=== PATIENT | female | born 1950 | race Caucasian/White ===

== ENCOUNTER 2018-02-11 14:17 | Emergency (ER) | payer MEDICARE, OTHER ==
[~2018-02-11] VITALS: Ht 162.6 cm; Wt 78.0 kg
[~2018-02-11 14:17] MED LIST: BACTRIM DS1 TAB PO; CALCIUM500 MG OR; COQ-10100 M1 PO; FISH OIL1 CAP PO; GARLIC PO; GLUCOSAMINE500 M2 OR; GNP RED YEAST RICE PO; LEVOTHYROXIN50 MCG PO; MULTIVITAMI1 OR; NORCO1 TAB PO; PRILOSEC40 MG PO; SIMVASTATIN40 MG PO; VITAMIN D2 PO
[2018-02-11] MEDS ORDERED: ASPIRIN81 MG PO (16:05)
[2018-02-11] MEDS ORDERED: VITAMIN E400 UNIT PO (16:06)
[2018-02-11] MEDS ORDERED: ASPERCREME LIDOCA41 TOP (16:30)
[2018-02-11] MEDS ORDERED: MOTRIN400 MG PO (16:30)
[2018-02-11 16:36] VITALS: BP 141/69
== END 2018-02-11 16:40 | disposition home or self-care (01) ==
LOC: ED 14:17
DX: S20.211A Contusion of right front wall of thorax, initial encounter (principal); E07.9 Disorder of thyroid, unspecified; W55.12XA Struck by horse, initial encounter; Y93.K9 Activity, other involving animal care; Y92.009 Unspecified place in unspecified non-institutional (private) residence as the place of occurrence of the external cause; Z86.73 Personal history of transient ischemic attack (TIA), and cerebral infarction without residual deficits

== ENCOUNTER 2020-07-15 09:40 | Observation (INO) | payer MEDICARE, OTHER ==
[~2020-07-15] VITALS: Ht 162.6 cm; Wt 74.1 kg
[2020-07-15] VITALS (10 sets, daily range): BP systolic 114–159; BP diastolic 51–72
[~2020-07-15 09:40] MED LIST changes: +ASPERCREME LIDOCA41 TOP; +ASPIRIN81 MG PO; +MOTRIN400 MG PO; +VITAMIN E400 UNIT PO
--- NOTE | 2020-07-15 09:40 | NUR ---
PT TO ROOM VIA WC
[2020-07-15 10:31] LABS: HEMATOCRIT 43.2 % (37.0-47.0); HEMOGLOBIN 13.4 g/dl (12.0-16.0); IMMATURE GRANULOCYTES 0.2 % (0.0-5.0); MEAN CELL VOLUME 85.4 fL CALC (80.0-100.0); MEAN CORPUSCULAR HGB 26.5 pG CALC (26.0-32.0); NEUT# 3.87 thou/uL (2.00-7.15); RED BLOOD COUNT 5.06 mill/uL (4.20-5.60); RED CELL DISTRI WIDTH 12.5 % (11.5-15.5); URINE BILIRUBIN - DIPSTICK NEGATIVE (NEGATIVE); URINE BLOOD DIPSTICK NEGATIVE (NEGATIVE); URINE COLOR YELLOW; URINE GLUCOSE - DIPSTICK NEGATIVE (NEGATIVE); URINE KETONE NEGATIVE (NEGATIVE); URINE LEUK ESTERASE NEGATIVE (NEGATIVE); URINE NITRITE - DIPSTICK NEGATIVE (Negative); URINE PROTEIN - DIPSTICK NEGATIVE (NEG-TRACE); URINE UROBILINOGEN - DIPSTICK 0.2 E.U./dL (0.2)
--- NOTE | 2020-07-15 10:44 | NUR ---
PT WITH IV ESTABLISHED, LABS DRAWN, MEDS PROVIDED ORDERED. PT FELT NAUSEATED BUT WAS ABLE TO TAKE ANTIVERT WITHOUT EMESIS.
[2020-07-15 11:06] LABS: ALBUMIN 4.3 g/dL (3.2-5.0); ALKALINE PHOSPHATASE 83 u/l (38-126); ANION GAP 12 (6-22 (CALC)); BILIRUBIN, TOTAL 0.5 mg/dL (0.0-1.4); BUN 17 mg/dL (8-23); BUN/CREATININE RATIO 27 (12-20 (CALC)); CARBON DIOXIDE 25 mmol/l (22-30); CHLORIDE 105 mmol/l (95-108); CREATININE 0.6 mg/dL (0.5-1.0); GFR > 60 ML/MIN (>=60 (CALC)); GFR FOR AFR.AMER. > 60 ML/MIN (>=60 (CALC)); SGOT/AST 25 u/l (9-36); SODIUM 139 mmol/l (137-146); TOTAL PROTEIN 7.3 g/dL (6.3-8.2)
[2020-07-15] MEDS ORDERED: MECLIZINE25 MG PO ×2 (12:01)
[2020-07-15] MEDS ORDERED: ZOFRAN4 MG/TAB PO ×2 (12:01)
--- NOTE | 2020-07-15 12:21 | NUR ---
PT PROVIDED ADDITIONAL MEDS PER CONTINUED DIZZINESS.
--- NOTE | 2020-07-15 13:35 | NUR ---
PT SEEN RESTING QUIETLY IN THE BED, EYES CLOSED PER SEDATION RESPONSE.
[2020-07-15] MEDS ORDERED: [UNRECOGNIZED DRUG - OTHER] PO (17:34)
--- NOTE | 2020-07-15 19:29 | NUR ---
RECEIVED HAND OFF REPORT FROM RANDY, PATIENT AWAITITNG ADMITING ORDER FOR INPATIENT ADMISSION. AWAKE AND ALERT, NO C/O PAIN OR DISCOMFORT, NO S/S OF DISTRESS NOTED, RESPIRATIONS EVEN AND UNLABORED.
--- NOTE | 2020-07-15 19:50 | NUR ---
PATIENT ARRIVES VIA ER STRETCHER ACCOMPANIED BY ER NURSE. PATIENT IS AWAKE, FOLLOWS DIRECTIONS, IS ABLE TO WALK TO THE BED WITH AN UNSTEADY GAIT, ASSISTED X1. PT DOES REPORT SHE IS DIZZY, FEELS LIKE "THE ROOM IS SPINNING." ON RA, NO SOB NOTED. SATS HREATER THAN 95%. AFEBRILE. SR ON TELEMETRY. BP 140'S-150'S SYSTOLIC. CALL LIGHT WITHIN REACH. DISCUSSED POC FOR TONIGHT. DISCUSSED NIH AND MEND EXAMS.
--- NOTE | 2020-07-15 19:59 | NUR ---
PATIENT TRANSFERED TO ICU ROOM 4 VIA STRETCHER.
--- NOTE | 2020-07-15 20:26 | NUR ---
PATIENT IN HIGH CHEN'S, IS EATING CRACKERS, ICED WATER PROVIDED. NO ACUTE DISTRESS SHOWN.
--- NOTE | 2020-07-15 20:50 | NUR ---
PATIENT IS AWAKE, ALERT AND ORIENTED X4. NIH SCORE IS 3 FOR LIMB ATAXIA PRESENT ON LEFT SIDE LIMBS, LLE DRIFT. PATIENT DOES REPORT SHE HAD A HISTORY OF STROKE WITH RESIDUAL LEFT SIDE WEAKNESS. PT ALSO REPORTS SHE HAS VERTIGO, WHICH SHE HAD A BOUT 3 MONTHS A GO AND SHE TAKES MECLIZINE PRN, SHE REPORTS THIS TIME IT IS WORSE ESPECIALLY WITH NAUSEA AND VOMITING WHICH SUBSIDED AFTER RECEIVING ZOFRAN IN THE ER. ADMISSION ASSESSMENT AND HISTORY COMPLETED. PT REPORTS PROVIDED A MEDICATION LIST IN THE ER. IV X1 INTACT. EDUCATED ON SCD'S AND MEDICATIONS SHE WILL BE RECEIVING, LABS/TESTS ORDERED. PT WAS ABLE TO HAVE A SNACK AND APPLE JUICE WITHOUT ANY DIFFICULTY, PT DOES REPORT SHE HAS A HERNIA IN HER THROAT WHICH IS WHY SHE EATS SMALL MOUTH BITES. PT CLOSES HER EYES AT TIMES FROM THE DIZZINESS. CALL LIGHT WITHIN REACH.
[2020-07-15 20:59] LABS: C-REACTIVE PROTEIN 0.5 mg/dL (0-0.9); CALCULATED LDLCHOLESTEROL 199 mg/dL (62-129 (CALC)); CHOLESTEROL HDL RATIO 4.8 (<4.4 (CALC)); ETHYL ALCOHOL 0 mg/dl (0-30); HDL CHOLESTEROL 59 mg/dL (>=40); TOTAL CHOLESTEROL 280 mg/dl (0-199); TOTAL TRIGLYCERIDES 111 mg/dl (30-149); VLDL CHOLESTROL 22 mg/dl (0-48 (CALC))
--- NOTE | 2020-07-15 23:00 | NUR ---
PATIENT WAS ASSISTED TO BSC. VOIDED YELLOW/CLEAR URINE, 200 ML. MEND EXAM PERFORMED, NO CHANGES. SCD'S IN PLACE. CALL LIGHT WITHIN REACH.
[2020-07-16] VITALS (19 sets, daily range): BP systolic 98–151; BP diastolic 42–85
--- NOTE | 2020-07-16 01:21 | NUR ---
MEND EXAM PERFORMED, NO CHANGES. NO ACUTE DISTRESS SHOWN. NO NEEDS OR COMPLAINTS AT THIS TIME.
--- NOTE | 2020-07-16 03:30 | NUR ---
PATIENT AWAKENS EASILY WHEN SPOKEN TO. PATIENT ABLE TO PERFORM MEND EXAM, NO CHANGES, STILL HAS THE DRIFT TO THE LLE, THE ATAXIA ON LEFT SIDE LIMBS. REPORTS THE DIZZINESS HAS BECOME LESS, THE ROOM SPINNING IS LESS WELL. PT WAS ASSISTED TO BSC, PT DOES CONTINUE TO HAVE UNSTEADY GAIT. PT NOW LAYS ON HER LEFT SIDE, REQUESTED A PILLOW TO PLACED IN BETWEEN HER KNEES, PROVIDED. CALL LIGHT WITHIN REACH.
--- NOTE | 2020-07-16 06:27 | NUR ---
PATIENT ABLE TO SWALLOW HER AM MEDICATION. NO ACUTE DISTRESS SHOWN. NO NEEDS OR COMPLAINTS AT THIS TIME. CALL LOGHT WITHIN REACH.
--- NOTE | 2020-07-16 07:05 | NUR ---
pt resting in bed with eyes closed; easily aroused; no apparent distress noted; assessment/ neuro exam completed at this time; pt alert and oriented; denies pain; no n/v noted; perrla; resp even and unlabored; lungs clear; skin color wnl; ra; hr reg; strong pulses; no edema noted; sr/sb on monitor; abd soft with bs present; no bm noted per racebook writer; pt admits to voiding without complication; no urine to inspect at this time; #20 flushed and patent to lfa; ivf infusing without complication; no redness or edema noted at site; pt admits to dizziness; racebook writer assist pt to sitting position for post lung assessment; dizziness noted worse with movement; no facial droop noted; left drift/weakness noted; see NIH; plan of care/ am meds/ neuro checks explained; call light within reach; will continue to monitor
--- NOTE | 2020-07-16 08:15 | NUR ---
awake in bed conversing on cell phone; no apparent distress noted; iv intact and patent; sr on monitor; call light within reach; will continue to monitor
--- NOTE | 2020-07-16 08:38 | NUR ---
Dr Rock present at bedside to assess pt and discuss plan of care
--- NOTE | 2020-07-16 10:02 | NUR ---
pt awake in bed; no apparent distress noted; pt conversing on cell phone; iv intact and patent; no redness or edema noted at site; no changes/ decline in neuro status; sr on monitor; call light within reach; will continue to monitor
--- NOTE | 2020-07-16 10:10 | NUR ---
awake in bed; assisted to bathroom; pt very dizzy with activity/ ambulation; iv intact and and pt; sr on monitor; call light within reach; will continue to monitor
--- NOTE | 2020-07-16 11:25 | NUR ---
PT present at bedside to eval and treat pt
--- NOTE | 2020-07-16 12:10 | NUR ---
awake in bed; spouse present at bedside; no apparent distress noted; pt offers no complaints; iv intact and patent; sr on monitor; call light within reach; will continue to monitor
--- NOTE | 2020-07-16 13:17 | NUR ---
PT/OT at bedside to assess eval pt;
--- NOTE | 2020-07-16 13:27 | NUR ---
PT note- patient is seen for funcitonal evaluation. I also performed DHP which was positive on the right. I went ahead and cleared her with an Epleys and gave her this as a HEP
--- NOTE | 2020-07-16 13:50 | NUR ---
pt awake sitting in chair; no apparent distress noted; pt denies any dizziness at current; pt states "I feel like a new person"; up to bathroom with slightly unsteady gait; pt admits to some dizziness only with activity; pt transferred to MRI via wc in stable condition;
--- NOTE | 2020-07-16 14:38 | NUR ---
pt returned to unit via wc in stable condition; monitoring attachments reapplied; pt with complaints of sore throat from vomiting; will continue to monitor
--- NOTE | 2020-07-16 15:45 | NUR ---
Dr Moran called per conventional mortgage underwriter; updated on MRI results; awaiting discharge orders
--- NOTE | 2020-07-16 16:05 | NUR ---
awake in bed; no apparent distress noted; MRI results reviewed with pt; awaiting discharge orders; spouse present at bedside; sr on monitor; call light within reach; will continue to monitor
[2020-07-16] MEDS ORDERED: ATORVASTATIN CA40 MG PO (16:30)
--- NOTE | 2020-07-16 17:10 | NUR ---
Discharge instructions given. Patient verbalizes understanding of same. Discharged in stable condition via Wheelchair to Home with spouse. All belongings sent with pt.
== END 2020-07-16 17:10 | disposition home or self-care (01) ==
LOC: ED 09:40 → ICU 16:36
PROVIDERS: Student in an Organized Health Care Education/Training Program; ADMIT Internal Medicine; ATTEND Internal Medicine
DX: R42 Dizziness and giddiness (principal); M62.81 Muscle weakness (generalized); H53.2 Diplopia; H53.40 Unspecified visual field defects; I10 Essential (primary) hypertension; E03.9 Hypothyroidism, unspecified; E78.5 Hyperlipidemia, unspecified; Z79.82 Long term (current) use of aspirin; Z86.73 Personal history of transient ischemic attack (TIA), and cerebral infarction without residual deficits; Z20.828 Contact with and (suspected) exposure to other viral communicable diseases
CPT/HCPCS: J1650; J2060

== ENCOUNTER 2022-04-18 08:25 | Day surgery (SDC) | payer MEDICARE, OTHER ==
[~2022-04-18] VITALS: Ht 162.6 cm; Wt 75.7 kg
[~2022-04-18 08:25] MED LIST changes: +ATORVASTATIN CA40 MG PO; +FISH OIL500 MG PO; +LASIX 40 MG TAB40 MG PO; +MECLIZINE25 M2; +MECLIZINE25 MG PO; +NITROSTAT0.4 MG SL; +TURMERIC500 M1; +ZOFRAN4 MG/TAB PO; +[UNRECOGNIZED DRUG - OTHER] PO
[2022-04-18 11:11] VITALS: BP 131/61
[2022-04-18] MEDS ORDERED: AMOXICILLIN500 M2 PO (13:36)
[2022-04-18] MEDS ORDERED: LEVOFLOXACIN500MG PO (13:37)
[2022-04-18] MEDS ORDERED: OMEPRAZOLE20 MG PO (13:38)
== END 2022-04-18 11:32 | disposition home or self-care (01) ==
LOC: ENDO 08:25 → ORM 08:45 → ENDO 09:00
PROVIDERS: ATTEND Surgery
PROC: 0DJD8ZZ Inspection of Lower Intestinal Tract, Via Natural or Artificial Opening Endoscopic (ICD-10-PCS; principal; 2022-04-18)
PROC: 0DJ08ZZ Inspection of Upper Intestinal Tract, Via Natural or Artificial Opening Endoscopic (ICD-10-PCS; 2022-04-18)
DX: K21.9 Gastro-esophageal reflux disease without esophagitis (principal); K44.9 Diaphragmatic hernia without obstruction or gangrene; Z12.11 Encounter for screening for malignant neoplasm of colon; E03.9 Hypothyroidism, unspecified; Z86.73 Personal history of transient ischemic attack (TIA), and cerebral infarction without residual deficits; Z80.0 Family history of malignant neoplasm of digestive organs
CPT/HCPCS: 43235; G0105

== ENCOUNTER 2023-01-08 14:07 | Emergency (ER) | payer MEDICARE, OTHER ==
[2023-01-08] VITALS (21 sets, daily range): BP systolic 109–154; BP diastolic 56–78
[~2023-01-08] VITALS: Ht 162.6 cm; Wt 79.2 kg
[~2023-01-08 14:07] MED LIST changes: +AMOXICILLIN500 M2 PO; +LEVOFLOXACIN500MG PO; +OMEPRAZOLE20 MG PO
[2023-01-08 14:38] LABS: BASO% 0.4 % (0-3); EOS% 0.9 % (0-8); HEMATOCRIT 42.8 % (37.0-47.0); HEMOGLOBIN 13.8 g/dl (12.0-16.0); IMMATURE GRANULOCYTES 0.1 % (0.0-5.0); LYMPH% 21.6 % (15-41); MEAN CELL VOLUME 84.9 fL CALC (80.0-100.0); MEAN CORPUSCULAR HGB 27.4 pG CALC (26.0-32.0); MEAN CORPUSCULAR HGB CONC 32.2 g/dL CAL (32.0-36.0); MONO% 4.6 % (2-13); NEUT# 5.49 thou/uL (2.00-7.15); NEUT% 72.4 % (42-76); RED BLOOD COUNT 5.04 mill/uL (4.20-5.60); RED CELL DISTRI WIDTH 12.7 % (11.5-15.5)
[2023-01-08 14:49] LABS: ALBUMIN 4.5 g/dL (3.2-5.0); ALKALINE PHOSPHATASE 74 u/l (38-126); ANION GAP 11 (6-22 (CALC)); BILIRUBIN, TOTAL 0.2 mg/dL (0.02-1.3); BUN 15 mg/dL (8-23); BUN/CREATININE RATIO 21 (12-20 (CALC)); CARBON DIOXIDE 25 mmol/l (22-30); CHLORIDE 107 mmol/l (95-108); CREATININE 0.7 mg/dL (0.5-1.0); GFR FOR AFR.AMER. > 60 ML/MIN (>=60 (CALC)); GFR OTHER RACES > 60 ML/MIN (>=60 (CALC)); POTASSIUM 3.6 mmol/l (3.5-5.1); SGOT/AST 32 u/l (9-36); SODIUM 140 mmol/l (137-146); TOTAL PROTEIN 7.5 g/dL (6.3-8.2)
[2023-01-08 15:55] LABS: URINE BILIRUBIN - DIPSTICK NEGATIVE (NEGATIVE); URINE BLOOD DIPSTICK NEGATIVE (NEGATIVE); URINE COLOR YELLOW; URINE GLUCOSE - DIPSTICK NEGATIVE (NEGATIVE); URINE KETONE NEGATIVE (NEGATIVE); URINE LEUK ESTERASE NEGATIVE (NEGATIVE); URINE PROTEIN - DIPSTICK NEGATIVE (NEG-TRACE); URINE UROBILINOGEN - DIPSTICK 0.2 E.U./dL (0.2)
[2023-01-08 15:56] LABS: URINE NITRITE - DIPSTICK NEGATIVE (Negative)
== END 2023-01-08 17:16 ==
LOC: ED 14:07
PROVIDERS: Nurse Practitioner
DX: I21.4 Non-ST elevation (NSTEMI) myocardial infarction (principal); Z82.49 Family history of ischemic heart disease and other diseases of the circulatory system; Z86.73 Personal history of transient ischemic attack (TIA), and cerebral infarction without residual deficits
CPT/HCPCS: J1644